=== PATIENT | male | born 1965 | race Caucasian/White ===

== ENCOUNTER 2018-08-18 22:35 | Emergency (ER) | payer BC, OTHER ==
[~2018-08-18] VITALS: Ht 172.7 cm; Wt 91.6 kg
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
[2018-08-19] MEDS ORDERED: ONDANSETRON PF 4 MG/2 ML VIAL. IV ONE (00:45)
[2018-08-19] MEDS ORDERED: KETOROLAC 15 MG/ML VIAL. IV ONE (00:45)
[2018-08-19] MEDS ORDERED: IV NORMAL SALINE 1000ML BAG 1,000 ML IV ONE (00:45)
[2018-08-19 01:14] LABS: BASO # 0.1 x10^3/uL (0.0-0.2); BASO % 1 % (0-3); EOS # 0.1 x10^3/uL (0.0-0.7); EOS % 1 % (0-3); HEMATOCRIT 43.6 % (39.0-53.0); HEMOGLOBIN 14.7 g/dL (13.0-17.5); LYMPH # 4.8 x10^3/uL (1.0-4.8); LYMPH % 37 % (24-48); MEAN CORPUSCULAR HEMOGLOBIN 30 pg (25-35); MEAN CORPUSCULAR HGB CONC 34 g/dL (31-37); MEAN CORPUSCULAR VOLUME 88 fL (79-100); MONO # 0.8 x10^3/uL (0.0-1.1); MONO % 6 % (0-9); NEUT # 7.3 x10^3uL (1.8-7.7); NEUT % 56 % (31-73); PLATELET COUNT 143 x10^3/uL (140-400); RED BLOOD COUNT 4.95 x10^6/uL (4.30-5.70); RED CELL DISTRIBUTION WIDTH 13.3 % (11.5-14.5)
[2018-08-19 01:21] LABS: CALCIUM 8.6 mg/dL (8.5-10.1); CREATININE 1.4 mg/dL (0.7-1.3); GFR 52.6; POTASSIUM 3.8 mmol/L (3.5-5.1)
[2018-08-19 01:27] LABS: ALBUMIN 3.3 g/dL (3.4-5.0); ALBUMIN/GLOBULIN RATIO 0.9 (1.0-1.7); TOTAL BILIRUBIN 1.4 mg/dL (0.2-1.0)
[2018-08-19 01:51] LABS: BILIRUBIN,URINE SMALL (NEG); CLARITY,URINE CLEAR; NITRITE,URINE POSITIVE (NEG); PROTEIN,URINE 100 mg/dL (NEG-TRACE)
[2018-08-19 01:59] LABS: COLOR,URINE AMBER
[2018-08-19 02:00] LABS: BACTERIA,URINE FEW /HPF (0-FEW); HYALINE CASTS, URINE MANY /HPF; SQUAMOUS EPITHELIAL CELL,UR OCC /LPF
[2018-08-19] MEDS ORDERED: ONDA4TAB7 PO (02:16)
[2018-08-19 03:05] VITALS: BP 119/79
[2018-10-07] MEDS ORDERED: LISI10TA2 PO (04:06)
[2018-10-07] MEDS ORDERED: LEVO (04:06)
[2018-10-07] MEDS ORDERED: INSU100I13 SQ (04:06)
[2018-10-07] MEDS ORDERED: INSU100C4 SQ (04:06)
[2018-10-07] MEDS ORDERED: TRAM50TA PO (04:06)
[2018-10-07] MEDS ORDERED: [UNRECOGNIZED DRUG - OTHER] (04:06)
[2018-10-07] MEDS ORDERED: METF100010 PO (04:06)
[2018-10-07] MEDS ORDERED: ASPI81TA50 PO (04:06)
[2018-10-07] MEDS ORDERED: LEVO175T5 PO (11:02)
[2018-10-07] MEDS ORDERED: LISI40TA2 PO (11:02)
[2018-10-07] MEDS ORDERED: PREG50CA PO (11:02)
[2018-10-07] MEDS ORDERED: DOXY100T PO (14:19)
[2018-10-07] MEDS ORDERED: LOSA100T14 PO (14:19)
[2018-10-07] MEDS ORDERED: Pantoprazole PO (14:19)
== END 2018-08-19 03:13 | disposition home or self-care (01) ==
LOC: ER 22:35
DX: R11.2 Nausea with vomiting, unspecified (principal); R19.7 Diarrhea, unspecified; R10.9 Unspecified abdominal pain; E11.9 Type 2 diabetes mellitus without complications; I10 Essential (primary) hypertension; I25.2 Old myocardial infarction; F17.200 Nicotine dependence, unspecified, uncomplicated
CPT/HCPCS: 36415; 80053; 81001; 82962; 83690; 85025; 87086; 96361; 96374; 96375; 99284; J1885; J2405; J7030

== ENCOUNTER 2018-10-30 21:55 | Emergency (ER) | payer MEDICARE, OTHER ==
[~2018-10-30] VITALS: Ht 172.7 cm; Wt 88.5 kg
[~2018-10-30 21:55] MED LIST: ASPI81TA50 PO; DOXY100T PO; INSU100C4 SQ; INSU100I13 SQ; LEVO; LEVO175T5 PO; LISI10TA2 PO; LISI40TA2 PO; LOSA100T14 PO; METF100010 PO; ONDA4TAB7 PO; PREG50CA PO; Pantoprazole PO; TRAM50TA PO; [UNRECOGNIZED DRUG - OTHER]
[2018-10-30] MEDS ORDERED: AMOX1TAB61 PO (22:20)
--- NOTE | 2018-10-30 22:20 | PHYS DOC ---
Past Medical History Past Medical History: Diabetes-Type II, Hypertension, [place], Other Additional Past Medical Histor: FATTY LIVER DISEASE (ANN-MARIE BRITT APRN) Past Surgical History: Other Additional Past Surgical Histo: [place], KNEE, cardiac stents (ANN-MARIE BRITT APRN) Alcohol Use: Occasionally Drug Use: None (ANN-MARIE BRITT APRN) Adult General Chief Complaint Chief Complaint: INSECT BITE HPI HPI Patient is a 53 year old that presents after stating he got bit by an insect while sitting outside yesterday enjoying the October. The patient is on sure what kind of insect bit him however the patient has a small abscess on his left upper thigh. Patient denies any fevers, denies any pain, and states he has not done any interventions for this prior to arrival. (ANN-MARIE BRITT APRN) Review of Systems Review of Systems Constitutional: Denies fever or chills [] Eyes: Denies change in visual acuity, redness, or eye pain [] HENT: Denies nasal congestion or sore throat [] Respiratory: Denies cough or shortness of breath [] Cardiovascular: No additional information not addressed in HPI [] GI: Denies abdominal pain, nausea, vomiting, bloody stools or diarrhea [] : Denies dysuria or hematuria [] Musculoskeletal: Denies back pain or joint pain [] Integument: Denies rash but has skin lesion to left upper leg. Neurologic: Denies headache, focal weakness or sensory changes [] Endocrine: Denies polyuria or polydipsia [] Complete systems were reviewed and found to be within normal limits, except as documented in this note. (ANN-MARIE BRITT APRN) Allergies Allergies Allergies Coded Allergies Type Severity Reaction Last Updated Verified No Known Drug Allergies 08/19/18 No (ANN-MARIE CABRERA DO) Physical Exam Physical Exam Constitutional: Well developed, well nourished, no acute distress, non-toxic appearance. [] HENT: Normocephalic, atraumatic, bilateral external ears normal, oropharynx moist, no oral exudates, nose normal. [] Eyes: PERRLA, EOMI, conjunctiva normal, no discharge. [] Neck: Normal range of motion, no tenderness, supple, no stridor. [] Cardiovascular:Heart rate regular rhythm, no murmur [] Lungs & Thorax: Bilateral breath sounds clear to auscultation [] Abdomen: Bowel sounds normal, soft, no tenderness, no masses, no pulsatile masses. [] Skin: 0.5 cm circular area of erythema that is hot to the touch. Back: No tenderness, no CVA tenderness. [] Extremities: No tenderness, no cyanosis, no clubbing, ROM intact, no edema. [] Neurologic: Alert and oriented X 3, normal motor function, normal sensory function, no focal deficits noted. [] Psychologic: Affect normal, judgement normal, mood normal. [] (ANN-MARIE BRITT APRN) Current Patient Data Vital Signs Vital Signs Date Time Temp Pulse Resp B/P (MAP) Pulse Ox O2 Delivery O2 Flow Rate FiO2 10/30/18 22:25 98.4 65 20 135/87 (103) 99 Room Air 98.4 (ANN-MARIE CABRERA DO) EKG EKG [] (ANN-MARIE BRITT APRN) Radiology/Procedures Radiology/Procedures [] (ANN-MARIE BRITT APRN) Course & Med Decision Making Course & Med Decision Making Pertinent Labs and Imaging studies reviewed. (See chart for details) Appears to be getting the start of an infection to his left thigh from unknown insect bite. There is nothing to drain currently so an I/D is not an option. Will place on Augmentin and D/c home. (ANN-MARIE BRITT APRN) Dragon Disclaimer Dragon Disclaimer This electronic medical record was generated, in whole or in part, using a voice recognition dictation system. (ANN-MARIE BRITT APRN) Departure Departure Impression: Primary Impression: Cellulitis Disposition: HOME, SELF-CARE Condition: STABLE Referrals: NO PCP (PCP) Patient Instructions: Cellulitis Additional Instructions: Thank you for visiting [facility]. We appreciate you trusting us with your care. If any additional problems come up don't hesitate to return to visit us. Please follow up with your primary care provider so they can plan additional care if needed and know about the problem that you had. If symptoms worsen come back to the Emergency Department. Any concerning symptoms that start such as chest pain, shortness of air, weakness or numbness on one side of the body, running high fevers or any other concerning symptoms return to the ER. You have been prescribed an antibiotic today to help fight your infection. Please take all of the antibiotic as directed. If after 48 hours the infection is not improving, please return for more care. If the infection worsens, return to ER for additional care. Please fill your medications at any pharmacy and follow the prescription instructions. Scripts Amoxicillin/Potassium Clav (AUGMENTIN 875-125 TABLET) 1 Each Tablet 1 TAB PO BID for 7 Days, #14 TAB Prov: ANN-MARIE BRITT APRN 10/30/18 Attending Signature Attending Signature I have reviewed the [employer] CHIEF's note and plan of care. I was available for consultation as needed during the patient's visit in the emergency department. I agree with the clinical impression, plan, and disposition. (ANN-MARIE CABRERA DO) Problem Qualifiers Primary Impression: Cellulitis Site of cellulitis: extremity Site of cellulitis of extremity: lower extremity Laterality: left Qualified Codes: L03.116 - Cellulitis of left lower limb ANN-MARIE BRITT APRN Oct 30, 2018 22:20 ANN-MARIE CABRERA DO Nov 01, 2018 05:13
[2018-10-30 22:25] VITALS: BP 135/87
== END 2018-10-30 22:40 | disposition home or self-care (01) ==
LOC: ER 21:55
DX: L03.116 Cellulitis of left lower limb (principal); I10 Essential (primary) hypertension; E11.9 Type 2 diabetes mellitus without complications; I25.2 Old myocardial infarction; Z95.5 Presence of coronary angioplasty implant and graft; W57.XXXA Bitten or stung by nonvenomous insect and other nonvenomous arthropods, initial encounter; Y93.89 Activity, other specified; Y92.89 Other specified places as the place of occurrence of the external cause; Y99.8 Other external cause status
CPT/HCPCS: 99283